=== PATIENT | male | born 1975 | race Caucasian/White ===

== ENCOUNTER 2024-12-28 02:25 | Observation (INO) | payer BC, SELFPAY ==
[2024-12-28] VITALS (54 sets, daily range): BP systolic 117–159; BP diastolic 57–95; PULSE 58–76; RESP 11–23; TEMP 35.7–36.8; O2SAT 92–100; BMI 32.8
--- NOTE | 2024-12-28 02:30 | DI.CT_ITS ---
Exam(s) CT ABDOMEN PELVIS W EXAM: CT ABDOMEN PELVIS W CLINICAL HISTORY: RUQ abd pain/tenderness. TECHNIQUE: Imaging Protocol: Axial computed tomography images with coronal and sagittal reformatted images were created and reviewed CONTRAST MATERIAL: Intravenous: Omnipaque 350 Contrast volume:100 ml Oral: no COMPARISON: No exams were available for comparison FINDINGS: ABDOMEN and PELVIS: Lung Bases: No acute findings. Liver: Normal density. No suspicious mass. Gallbladder and biliary tract: There are few stones within the dependent portion of the gallbladder. There is additional stone noted in the cystic duct measuring 4 millimeters. There is mild stranding around the gallbladder, findings are consistent with early acute cholecystitis. No wall thickening or pericholecystic fluid. No biliary dilation. Pancreas: Normal density. No abnormal calcifications or inflammatory process. No evidence of mass. Spleen: Normal. Kidneys: Normal size, contour and axis. No radiodense stones. No obstructive uropathy. No suspicious masses seen. Adrenal glands: No masses seen. Vasculature: Abdominal aorta non-dilated. Soft tissues: Unremarkable. Bladder: No gross wall thickening. No calculi.No focal mass. Bowel: No obstruction. No bowel wall thickening. Appendix normal. Normal quantity of stool. Peritoneal cavity: No ascites. No focal collection. Mild stranding in the fat surrounding the gallbladder. No free air. Bones: Unremarkable for age. Reproductive organs: mildly enlarged prostate. Lymph nodes: No pathologically enlarged lymph nodes. IMPRESSION:: Several stones within the gallbladder as well as stone in cystic duct. Mild gallbladder inflammation. The preliminary [facility] report was reviewed. RADIATION DOSE DELIVERED: 812.88mGy.cm Total DLP DATA REPOSITORY: All CT scans at this facility are submitted to the National Radiology Data Registry (NRDR) Dose Index Registry (DIR) with the [employer] [place] [employer] [employer] (ACR). RADIATION OPTIMIZATION: All CT scans at this facility use at least one of these dose optimization techniques: automated exposure control; mA and/or kV adjustment per patient size (includes targeted exams where dose is matched to clinical indication); or iterative reconstruction.
--- NOTE | 2024-12-28 02:30 | ED.GENADUL_ITS ---
Discharge Plan Disposition Patient Disposition: Admit to [facility] Condition: Stable Discharge Details Clinical Impression: Acute cholecystitis ED Provider: Mat Bosch [facility] and New Rx's Prescriptions: No Action simvastatin 40 mg tablet 40 mg PO QHS multivitamin [Multiple Vitamins] Tablet 1 tab PO DAILY HPI General Mode of arrival: ambulatory . Date/Time Provider Initiated Documentation: 12/28/24 02:30 . Limitations to Documentation: no limitations . Information obtained by: patient and RN notes reviewed . HPI Narrative: Patient presents to ED after being woken up around 1 AM with severe right upper quadrant abdominal pain radiating in towards the back. He has had similar but less severe pain a few weeks ago and is due for a right upper quadrant ultrasound as an outpatient. Pain tonight woke him up and was described as sharp 8 out of 10 pain. It has lessened but is still present. He has some mild nausea but denies any vomiting or diarrhea. Pain is not worse with breathing. He has had no urinary symptoms. He does not feel short of breath and denies any chest pain. He has had no previous surgeries. He has high cholesterol but no o ther significant medical problems. Related Data Home Medications ?Medication ?Instructions ?Recorded ?Confirmed multivitamin (Multiple Vitamins 1 tab PO DAILY 5 12/28/24 tablet) simvastatin 40 mg tablet 40 mg PO QHS 12/28/24 Allergies Allergy/AdvReac Type Severity Reaction Status Date / Time No Known Allergies Allergy Unverified 12/28/24 02:39 Exam Narrative Exam Narrative: Const: WDWN male in NAD. VS per triage. HEENT: NC/AT. Normal facial exam. Neck: Supple. Trachea midline. Lungs: Normal respiratory effort. Lungs are clear. Cor: RRR without murmur. Good radial pulses. GI: Soft/ND. Mildly tender without guarding in the RUQ. Back: No CVAT. Neuro: A+O x 3. Normal speech, mentation, gait. Cranial nerves II - XII grossly intact. No gross motor or sensory deficit. Ext: No C/C/E. Medical Decision Making Patient presenting to ED with right upper quadrant abdominal pain radiating to the back. He is mildly tender in the right upper quadrant but no guarding or rebound no Javier sign. Pain does seem most consistent with gallbladder disease. There is no pleuritic component and he is not short of breath. Denies chest pain. Potentially could be pancreas or ulcer related in nature. Less likely liver disease. Consider possibility of proximal ureteral stone. Will place IV and obtain labs. Doubt this is cardiac but will get an EKG. Fluids and Toradol ordered. CT scan of the abdomen/pelvis obtained. EKG is sinus rhythm with no ST changes, normal EKG. Laboratory studies are unremarkable. His white count is normal. Liver function normal. Lipase normal. CT scan being preliminarily read by radiology as acute cholecystitis with a 3 mm stone in the neck with associated inflammatory changes. Patient will be made NPO. Will continue fluids at 125 an hour. Patient given dose of antibiotics and will discuss with surgery later this morning. Patient is aware of findings. Morphine ordered as needed as needed for recurrent pain. Lab Data Lab results reviewed: Yes I reviewed the patient's lab results. Lab results narrative: see [facility] ECG Data Attestation: I personally reviewed and interpreted this ECG (s) as follows: Prior ECG tracings: not available for review Interpretation: see EKG/MDM [facility] All Active Problems (Updated 12/28/24 @ 03:35 by Mat Bosch MD) Acute cholecystitis (Acute) Medical History Hyperlipidemia Social History Smoking/Tobacco Use Status: Never Smoking risk assessment performed?: Yes Alcohol Intake: current Alcohol Intake frequency: 3 or more drinks per day Substance use type: does not use Housing: house
--- NOTE | 2024-12-28 02:30 | RT.EKG_ITS ---
APPROVED REPORT Exam: Resting ECG Reason for Exam: chest pain Patient Location: E HR:69 bpm ECG Measurements Heart Rate 69 AXIS CO 190 P 29 QRSd 93 QRS 18 QT 376 T 7 QTc 402 Conclusion Sinus rhythm...normal P axis, V-rate 60- 99 Normal Electrocardiogram
[2024-12-28 02:48] LABS: Abs Immature Grans 0.02 10^3/uL (0.0-0.06); Absolute Basophil Count 0.05 10^3/uL (0.0-0.2); Absolute Eosinophil Count 0.17 10^3/uL (0.0-0.7); Absolute Lymphocyte Count 2.33 10^3/uL (1.2-3.4); Absolute Monocyte Count 0.41 10^3/uL (0.1-0.8); Absolute Neutrophil Count 2.87 10^3/uL (1.2-6.7); Basophils % 0.9 %; Eosinophils % 2.9 %; HCT 44.4 % (40.0-50.0); HGB 15.3 g/dL (13.5-17.5); Immature Grans % 0.3 %; Lymphocytes % 39.8 %; MCH 28.8 pg (27.0-33.0); MCHC 34.5 % (32.0-36.0); MCV 84 fL (80-95); MPV 10.1 fL (8.0-11.0); Neutrophils % 49.1 %; Platelet Count 216 10^3/uL (130-400); RBC 5.31 10^6/uL (4.36-5.78); RDW 12.4 % (11.8-14.1); RDW-SD 37.4 fL; WBC 5.85 10^3/uL (4.4-10.8)
[2024-12-28] MEDS: Omnipaque 350 MG/ML 100 ML BTL IJ (02:55)
[2024-12-28] MEDS: Normal Saline Flush 10 ML SYR IVP ×3 (02:56→20:50)
[2024-12-28] MEDS: Normal Saline - Diluent 50 ML VIAL IJ (02:56)
[2024-12-28 03:05] LABS: ALT 40 U/L (16-63); AST 26 U/L (15-37); Albumin 4.6 g/dL (3.4-5.0); Alkaline Phosphatase 59 U/L (46-116); Anion Gap 7.8 mmol/L (3-11); BUN 20 mg/dL (7-18); Bilirubin, Total 0.5 mg/dL (0.2-1.0); CO2 31.2 mmol/L (21.0-32.0); CREATININE 1.3 mg/dL (0.70-1.30); Calcium 9.3 mg/dL (8.5-10.1); Chloride 103 mmol/L (98-107); Estimated GFR 67.34 (mL/min/1.73m2); Glucose 107 mg/dL (74-106); Lipase 71 U/L (<78); Potassium 4.2 mmol/L (3.5-5.1); Sodium 142 mmol/L (136-145); Total Protein 7.6 g/dL (6.4-8.2)
[2024-12-28] MEDS: Normal Saline 500 ML IV (03:12)
[2024-12-28] MEDS: Ketorolac 15 MG/ML VIAL IVP (03:12)
--- NOTE | 2024-12-28 03:23 | DI.[facility]_ITS ---
PROCEDURE INFORMATION: Exam: CT Abdomen And Pelvis With Contrast Exam date and time: 12/28/2024 2:53 AM Age: 49 years old Clinical indication: Abdominal pain; Localized; Right upper quadrant (ruq); Ruq abd pain/tenderness TECHNIQUE: Imaging protocol: Computed tomography of the abdomen and pelvis with contrast. Radiation optimization: All CT scans at this facility use at least one of these dose optimization techniques: automated exposure control; mA and/or kV adjustment per patient size (includes targeted exams where dose is matched to clinical indication); or iterative reconstruction. Contrast material: OMNIPAQUE 350; Contrast volume: 100 ml; Contrast route: INTRAVENOUS (IV); COMPARISON: No relevant prior studies available. FINDINGS: Lungs: Lung bases clear. Liver: Normal appearing liver. Gallbladder and biliary ducts: Prominent gallbladder distention with mild surrounding hazy fat stranding. Calcified gallstones in the gallbladder neck. 3 mm calcified stone in the cystic duct on image 27 of series 8. No biliary dilatation. Pancreas: Normal appearing pancreas. Spleen: Normal appearing spleen. Adrenal glands: Normal appearing adrenal glands. Kidneys and ureters: Small indeterminate hypoattenuating left renal lesion, not well characterized but statistically most likely a small renal cyst. Otherwise normal-appearing kidneys. No obstructing ureteral stones, hydronephrosis, or evidence of recent stone passage. Stomach and bowel: Stomach moderately distended with ingested material. No small bowel dilatation to suggest obstruction. Normal-appearing colon. No evidence of diverticulitis or colitis. Appendix: Normal appendix. Intraperitoneal space: No gross ascites or free air. Vasculature: Normal caliber abdominal aorta. Lymph nodes: No pathologically enlarged mesenteric, retroperitoneal, or pelvic sidewall lymph nodes. Urinary bladder: Urinary bladder partially collapsed but grossly unremarkable, as seen. Reproductive: Mildly enlarged prostate gland with a maximum transverse dimension of 4.6 cm x 5.6 cm. Normal-appearing seminal vesicles. Bones/joints: Pectus excavatum deformity partially visualized. No acute fracture seen among the bones of the abdomen or pelvis. Soft tissues: No significant ventral or inguinal hernia. 2.2 cm x 3.0 cm subcutaneous but cutaneously based cystic lesion in the left flank on image 31 of series 8, not definitively characterized but most likely a trichilemmal cyst or sebaceous cyst. IMPRESSION: Acute cholecystitis caused by a 3 mm calcified stone in the cystic duct. Surgery consultation recommended. Additional calcified gallstones also present. Dictated and Authenticated by: Chi Palencia MD. Orderin Hiro Rivero MD
[2024-12-28] MEDS: PIPERACILLIN/TAZO 3.375 GM in Normal Saline 50 ML IVPB (05:18)
[2024-12-28 06:07] LABS: Bilirubin Negative (Negative); Blood Negative (Negative); Clarity Clear (Clear); Glucose Negative (Negative); Ketones Negative (Negative); Leukocyte Esterase Negative (Negative); Nitrite Negative (Negative); Specific Gravity <= 1.005 (1.005-1.025); Urobilinogen 0.2 mg/dL (Up to 0.2); pH 5.5 (5-8)
--- NOTE | 2024-12-28 07:22 | W.PM.HP.N ---
Date of service: 12/28/24 Time of Service: 07:22 Assessment and Plan Assessment and plan (1) Acute cholecystitis: Status: Acute Assessment and plan: The history certainly seems consistent with symptoms related to cholelithiasis, and the inflammation seen on the CT scan I think would support the diagnosis of acute cholecystitis. He also has tenderness in the area which is also consistent with that diagnosis. I think cholecystectomy is a very reasonable option here. We talked about the risks and the benefits of the procedure and I think he has a very good understanding of this. Will try to arrange this as soon as possible. History of Present Illness History of Present Illness Chief Complaint: Abdominal pain Narrative: Luis Angel is 49 years old. Came to the emergency department after waking from sleep with sharp stabbing right upper quadrant pain. He had a little bit of nausea associated with this. This happened to him once in the past, and he was in the process of being evaluated for cholelithiasis. Unfortunately, his outpatient ultrasound was not scheduled until January. Came to the emergency department because of concern of the symptoms. Labs and vitals were reassuring, and he underwent a CT scan that demonstrated a dilated gallbladder with some inflammation in the surrounding soft tissues. There is also evidence of cholelithiasis. He has never had any abdominal surgical history before. He is got no medical allergies. Review of Systems Constitutional Constitutional: Denies fever(s) and Reports poor appetite Eyes Eyes: Reports system reviewed and no additional complaints, except as documented ENT Ears, Nose, Mouth, and Throat: Reports system reviewed and no additional complaints, except as documented Cardiovascular Cardiovascular: Denies chest pain and Denies dyspnea Respiratory Respiratory: Denies chest congestion, Denies cough and Denies dyspnea Gastrointestinal Gastrointestinal: Reports abdominal pain, Reports nausea and Denies vomiting Genitourinary Genitourinary: Reports system reviewed and no additional complaints, except as documented Musculoskeletal Musculoskeletal: Reports system reviewed and no additional complaints, except as documented Hematologic/Lymphatic Hematologic/Lymphatic: Denies easy bleeding and Denies easy bruising PFSH All Active Problems (Updated 12/28/24 @ 03:35 by Mat Bosch MD) Acute cholecystitis (Acute) Medical History Hyperlipidemia Social History Smoking/Tobacco Use Status: Never Smoking risk assessment performed?: Yes Alcohol Intake: current Alcohol Intake frequency: 3 or more drinks per day Substance use type: does not use Housing: house Meds Allergies and Home Medications Allergies Allergy/AdvReac Type Severity Reaction Status Date / Time No Known Allergies Allergy Unverified 12/28/24 02:39 Home Medications ?Medication ?Instructions ?Recorded ?Confirmed ?Type multivitamin (Multiple Vitamins 1 tab PO DAILY 12/28/24 12/28/24 History tablet) simvastatin 40 mg tablet 40 mg PO QHS 12/28/24 12/28/24 History Exam Const General: cooperative and comfortable Orientation: alert, awake and oriented x3 HENMT Head: normal to inspection Eyes General: appearance normal, both eyes and all related structures Neck Neck: normal visual inspection, full ROM and no lymphadenopathy Resp Effort & Inspection: normal respiratory effort and no cough Auscultation: clear to auscultation bilaterally GI Inspection: normal to inspection and non-distended Palpation: soft, no guarding and tender (Right upper quadrant) Percussion: normal to percussion Auscultation: normal bowel sounds Results Labs 12/28/24 02:41 12/28/24 02:41 Labs: Laboratory Results - last 24 hr 12/28/24 12/28/24 02:41 06:00 WBC 5.85 RBC 5.31 Hgb 15.3 Hct 44.4 MCV 84 MCH 28.8 MCHC 34.5 RDW 12.4 Plt Count 216 MPV 10.1 Immature Gran % 0.3 Neutrophils % 49.1 Lymphocytes % 39.8 Monocytes % 7.0 Eosinophils % 2.9 Basophils % 0.9 Nucleated RBC % 0.0 Absolute Neutrophils 2.87 Absolute Lymphocytes 2.33 Absolute Monocytes 0.41 Absolute Eosinophils 0.17 Absolute Basophils 0.05 Sodium 142 Potassium 4.2 Chloride 103 Carbon Dioxide 31.2 Anion Gap 7.8 BUN 20 H Creatinine 1.3 Est GFR (CKD-EPI 2020) 67.34 Glucose 107 H Calcium 9.3 Total Bilirubin 0.5 AST 26 ALT 40 Alkaline Phosphatase 59 Total Protein 7.6 Albumin 4.6 Lipase 71 Urine Color Yellow Urine Clarity Clear Urine pH 5.5 Ur Specific [place] <= 1.005 Urine Protein Negative Urine Ketones Negative Urine Blood Negative Urine Nitrite Negative Urine Bilirubin Negative Urine Urobilinogen 0.2 Ur Leukocyte Esterase Negative Urine Glucose Negative Last Vital Signs Temp 97.9 F 12/28/24 02:29 Pulse 67 12/28/24 05:40 Resp 11 L 12/28/24 02:50 BP 137/81 12/28/24 05:30 Pulse Ox 98 12/28/24 05:40 Time Spent Time spent with Patient: 40-54 minutes Time was spent: preparing to see the patient(eg.review tests), obtaining and/or reviewing separately otained hiistory, referring, communicating with other health critical care unit nurse, indepentently interpreting results and counseling the patient
--- NOTE | 2024-12-28 07:25 | ED.PROG_ITS ---
Date of service: 12/28/24 Time of Service: 07:25 Medical Decision Making This patient was in the department on my arrival. Patient has acute cholecystitis. General surgery has been contacted. Patient has received antibiotics and is n.p.o. with maintenance fluids. General surgery will place orders. Dr. Bosch has been in touch with Dr. Zamora. 8:09 AM Patient was taken to the floor from the emergency department. Dr. Zamora placed admission order. Discharge Plan Disposition Patient Disposition: Admit to [facility] Condition: Stable Discharge Details Clinical Impression: Acute cholecystitis Primary Care Provider: Gurwinder Ray ED Provider: Gurwinder Teresa Home Meds and New Rx's Prescriptions: No Action simvastatin 40 mg tablet 40 mg PO QHS multivitamin [Multiple Vitamins] Tablet 1 tab PO DAILY
--- NOTE | 2024-12-28 08:33 | W.PC.ACHO ---
Registration Status: REG ER Primary Language: Preferred Language: ED Information & Data Chief Complaint Abd Prob 12/28/24 02:34 Chief Complaint Abd Prob 12/28/24 02:29 Triage Note pt arrives with abdominal 12/28/24 02:29 pain. States he was seen at [facility] about two weeks ago and they felt it was gall bladder related and recommended a US. Pt had follow up w pcp and US is scheduled for a month. Pt states pain has continued this past week and came on worse this am Medical / Surgical History (Last Reviewed 12/28/24 @ 03:07 by Mat Bosch MD) Hyperlipidemia Most Recent Vital Signs Temperature 97.7 F 12/28/24 08:19 Temperature Source Oral 12/28/24 02:29 Pulse 62 12/28/24 08:19 Pulse 70 12/28/24 02:50 Respiratory Rate 16 12/28/24 08:19 Blood Pressure 124/69 12/28/24 08:19 Blood Pressure Mean 96 12/28/24 05:30 Pulse Oximetry 99 12/28/24 08:19 Oxygen Delivery Method Room Air 12/28/24 02:29 Oxygen Flow Rate 0 12/28/24 02:29 Pain Level 2 12/28/24 05:05 Allergies No Known Allergies Allergy (Unverified 12/28/24 02:39) Precautions Isolation Standard precaution 12/28/24 02:34 Active Medications Generic Name Dose Route Start Last Admin Trade Name Freq PRN Reason Stop Dose Admin Iohexol 100 ml 12/28/24 03:00 12/28/24 02:55 Omnipaque 350 Mg/Ml 100 Ml Btl IJ 01/27/25 23:59 100 ml DIRECTED KIRAN Administration Sodium Chloride 0 ml 12/28/24 02:37 12/28/24 02:56 Normal Saline Flush 10 Ml Syr IVP 10 ml PRN PRN Administration Sodium Chloride 50 ml 12/28/24 03:00 12/28/24 02:56 Normal Saline - Diluent 50 Ml Vial IJ 50 ml .FOR DI USE KIRAN Administration IV IV Catheter Type [Right Saline Lock Forearm] IV Catheter Gauge [Right 18 Forearm] Diagnostics 12/28/24 12/28/24 Range/Units 06:00 02:41 WBC 5.85 (4.4-10.8) 10^3/uL RBC 5.31 (4.36-5.78) 10^6/uL Hgb 15.3 (13.5-17.5) g/dL Hct 44.4 (40.0-50.0) % MCV 84 (80-95) fL MCH 28.8 (27.0-33.0) pg MCHC 34.5 (32.0-36.0) % RDW 12.4 (11.8-14.1) % Plt Count 216 (130-400) 10^3/uL MPV 10.1 (8.0-11.0) fL Immature Gran % 0.3 % Neutrophils % 49.1 % Lymphocytes % 39.8 % Monocytes % 7.0 % Eosinophils % 2.9 % Basophils % 0.9 % Nucleated RBC % 0.0 (0.0-0.3) % Absolute Neutrophils 2.87 (1.2-6.7) 10^3/uL Absolute Lymphocytes 2.33 (1.2-3.4) 10^3/uL Absolute Monocytes 0.41 (0.1-0.8) 10^3/uL Absolute Eosinophils 0.17 (0.0-0.7) 10^3/uL Absolute Basophils 0.05 (0.0-0.2) 10^3/uL Sodium 142 (136-145) mmol/L Potassium 4.2 (3.5-5.1) mmol/L Chloride 103 (98-107) mmol/L Carbon Dioxide 31.2 (21.0-32.0) mmol/L Anion Gap 7.8 (3-11) mmol/L BUN 20 H (7-18) mg/dL Creatinine 1.3 (0.70-1.30) mg/dL Est GFR (CKD-EPI 2020) 67.34 (mL/min/1.73m2) Glucose 107 H (74-106) mg/dL Calcium 9.3 (8.5-10.1) mg/dL Total Bilirubin 0.5 (0.2-1.0) mg/dL AST 26 (15-37) U/L ALT 40 (16-63) U/L Alkaline Phosphatase 59 (46-116) U/L Total Protein 7.6 (6.4-8.2) g/dL Albumin 4.6 (3.4-5.0) g/dL Lipase 71 (<78) U/L Urine Color Yellow (Yellow) Urine Clarity Clear (Clear) Urine pH 5.5 (5-8) Ur Specific [place] <= 1.005 (1.005-1.025) Urine Protein Negative (Neg-Trace) mg/dL Urine Ketones Negative (Negative) mg/dL Urine Blood Negative (Negative) Urine Nitrite Negative (Negative) Urine Bilirubin Negative (Negative) Urine Urobilinogen 0.2 (Up to 0.2) mg/dL Ur Leukocyte Esterase Negative (Negative) Urine Glucose Negative (Negative) mg/dL Intake and Output - 24 Hour Total 12/28/24 02:25 thru 12/28/24 05:52 Intake Total 550 Balance 550 Weight 250 lb Intake: IV 550 Falls Risk Assessment History of Falls No History 12/28/24 02:34 Contributing Factors No Factors 12/28/24 02:34 Ambulatory Aids Independent 12/28/24 02:34 Tubes/Lines None 12/28/24 02:34 Gait Evaluation No gait disturbance 12/28/24 02:34 Cognition No cognitive impairment 12/28/24 02:34 Fall Total Score 0 12/28/24 02:34 Level of Risk Standard/Low Risk 12/28/24 02:34 v v v v v v v v v Sending and/or Receiving Nurses: Please use comment section below to note any information pertinent to the patient hand-off not included above. Information / Comments: Plan for surgery this afternoon NPO 12/27/24 Report received from: Lilly Mays RN
[2024-12-28] MEDS: Lactated Ringers 1,000 ML 75 ML IV (09:02)
[2024-12-28] MEDS: Enoxaparin 40 MG/0.4 ML SYR SC (13:04)
--- NOTE | 2024-12-28 13:39 | ANES.PREOP_ITS ---
General Info Date of Service Date Performed: 12/28/24 Height: 6 ft 1 in Weight: 112.8 kg Body Mass Index (BMI): 32.8 Surgical Procedure: Operation Date: 12/28/24 14:25 Proposed Procedure Side Surgeon p Cholecystectomy Laparoscopic Manan Zamora MD Meds Allergies and Home Medications Allergies Allergy/AdvReac Type Severity Reaction Status Date / Time No Known Allergies Allergy Unverified 12/28/24 02:39 Home Medication ?Medication ?Instructions ?Recorded multivitamin (Multiple Vitamins 1 tab PO DAILY 5 tablet) simvastatin 40 mg tablet 40 mg PO QHS 12/28/24 Current Visit Medications: Current Medications Generic Name Dose Route Start Last Admin Trade Name Freq PRN Reason Stop Dose Admin Enoxaparin Sodium 40 mg 12/28/24 12:00 12/28/24 13:04 Enoxaparin 40 Mg/0.4 Ml Syr SC 40 mg Q24H KRIAN Administration Hydromorphone HCl 1 mg 12/28/24 08:40 Hydromorphone 2 Mg/Ml Syr IVP Q4H PRN PRN Ringer's Solution 1,000 mls @ 75 mls/hr 12/28/24 08:40 12/28/24 09:02 IV 75 mls/hr INFUSION KIRAN Administration IV Miscellaneous Supplies 1 each 12/28/24 08:40 Iv Access IV DIRECTED KIRAN Morphine Sulfate 4 mg 12/28/24 07:53 Morphine 4 Mg/Ml Syr IVP Q2H PRN PRN Abdominal Pain Ondansetron HCl 4 mg 12/28/24 08:40 Ondansetron 4 Mg/2 Ml Vial IVP Q4H PRN PRN Sodium Chloride 0 ml 12/28/24 08:40 Normal Saline Flush 10 Ml Syr IVP PRN PRN Sodium Chloride 0 ml 12/28/24 08:40 12/28/24 09:19 Normal Saline Flush 10 Ml Syr IVP 10 ml BID KIRAN Administration Sodium Chloride 0 ml 12/28/24 08:40 Normal Saline 10 Ml Vial IJ DIRECTED PRN PFSH Active Problems Active Problems: Problem Status Onset Code Acute cholecystitis Acute K81.0 Medical History Medical History Hyperlipidemia Tobacco Smoking/Tobacco Use Status: Never Alcohol Alcohol Intake: current Alcohol intake frequency: 3 or more drinks per day Substance Use Substance use type: does not use Vital Signs and Lab Results Vital Signs Most Recent Vital Signs in EMR: Most Recent Vital Signs Temp Pulse Resp BP Pulse Ox 36.8 C 61 14 131/79 100 12/28/24 13:03 12/28/24 13:03 12/28/24 13:03 12/28/24 13:03 12/28/24 13:03 Lab Results 12/28/24 02:41 12/28/24 02:41 Complete Blood Count: 2 WBC, (4.4-10.8) 5.85 10^3/uL Today, 02:41 RBC, (4.36-5.78) 5.31 10^6/uL Today, 02:41 Hgb, (13.5-17.5) 15.3 g/dL Today, 02:41 Hct, (40.0-50.0) 44.4 % Today, 02:41 Plt Count, (130-400) 216 10^3/uL Today, 02:41 Complete Metabolic Panel: 2 Sodium, (136-145) 142 mmol/L Today, 02:41 Potassium, (3.5-5.1) 4.2 mmol/L Today, 02:41 Chloride, (98-107) 103 mmol/L Today, 02:41 Carbon Dioxide, (21.0-32.0) 31.2 mmol/L Today, 02:41 BUN, (7-18) 20 mg/dL H Today, 02:41 Creatinine, (0.70-1.30) 1.3 mg/dL Today, 02:41 Est GFR (CKD-EPI 2020), (mL/min/1.73m2) 67.34 Today, 02:41 Calcium, (8.5-10.1) 9.3 mg/dL Today, 02:41 Albumin, (3.4-5.0) 4.6 g/dL Today, 02:41 Glucose, (74-106) 107 mg/dL H Today, 02:41 Liver Function Panel: 2 ALT, (16-63) 40 U/L Today, 02:41 AST, (15-37) 26 U/L Today, 02:41 Pancreas Panel: 2 Lipase, (<78) 71 U/L Today, 02:41 Imaging and Studies Imaging and Studies Study information below may be from another EMR and interpreted by another provider. Please see original notes in EMR for more complete details. EKG Summary: EKG PATIENT NAME: Luis Angel Reid UNIT #: [id number] ORDERING PROVIDER: Litzy Joseph M.D. PRIMARY CARE PROVIDER: DATE/TIME OF SERVICE: 12/28/24 0244 : 1975 PERFORMING LOCATION: ER APPROVED REPORT Exam: Resting ECG Reason for Exam: chest pain Patient Location: E HR:69 bpm ECG Measurements Heart Rate 69 AXIS ID 190 P 29 QRSd 93 QRS 18 QT 376 T7 QTc 402 Conclusion Sinus rhythm...normal P axis, V-rate 60- 99 Normal Electrocardiogram - <Electronically signed by LITZY JOSEPH MD in OV> E-Sign Date: 12/28/24 E-Sign Time: 311 Anesthesia Assessment and Plan Anesthesia History Personal History: No History of Anesthesia Complications Family History: No Family History of Anesthesia Complications Exercise Tolerance Exercise Tolerance: Metabolic Equivalents>4 Pertinent Negatives Pertinent Negatives: No Symptoms of GERD, No Major Cardiovascular Symptoms or Complaints, No Major Pulmonary Symptoms or Complaints and No History of CVA/TIA Cardiac & Pulmonary Exam Cardiac Exam: Normal S1/S2 Heart Sounds Pulmonary Exam: Clear Bilateral Breath Sounds Implantable Cardiac Device Does patient have a Pacemaker or an ICD?: No Airway Exam Known Difficult Airway: No Mallampati Class: 2 Mouth Opening: Normal (> 3cm) Thyromental Distance: Greater than 3 cm Facial Hair: Full White Neck Range of Motion: Full ROM Neck Circumference: Normal Teeth Condition: Normal Dentition ASA Classification ASA Score: ASA 2 Emergency Case?: No NPO Status NPO Status: NPO Clears >2 hours, Solids >8 hours Anesthesia Plan Resuscitation Status: Full Code Anesthesia Technique: General Anesthesia Airway Planned: Endotracheal Tube Monitors Used: Standard Monitors and SedLine
[2024-12-28] MEDS: ceFAZolin 2,000 MG in Normal Saline 100 ML 200 MG IVPB (14:58)
[2024-12-28] MEDS: Indocyanine green 25 MG VIAL 5 MG IVP (15:00)
[2024-12-28] MEDS: Bupivacaine 0.25% Pres-Free 30 ML VIAL (15:41)
--- NOTE | 2024-12-28 15:44 | GB_PTH ---
PATIENT: Luis Angel Reid LOC: U#:[id number] AGE/SX: 49/M ROOM: [facility] RE12/28/[address]: Manan Zamora MD : [id number] BED: A DIS: 12/29/2024 SPEC #: [id number] RECD: 12/28/24 18:33 STATUS: JEFF REQ #: [id number] CELINE: 12/28/24 15:[address]: Manan Zamora DEPT: Surgical Specimen RECD BY: Jenifer Mendoza Tissues: 1 - GALLBLADDER Procedures: GROSS AND MICRO LEVEL 3 Comments: [id number]
[2024-12-28] MEDS: fentaNYL 100 MCG/2 ML VIAL IVP (17:06)
--- NOTE | 2024-12-28 17:09 | W.ANESPOSTOP ---
Postoperative Evaluation Date, Time and Location Date Performed: 12/28/24 Time Performed: 17:09 Patient Location: PACU Vital Signs Most Recent Imported Vital Signs: Most Recent Vital Signs Temp Pulse Resp BP Pulse Ox 36.2 C L 68 15 159/90 H 97 12/28/24 17:01 12/28/24 17:01 12/28/24 17:01 12/28/24 17:01 12/28/24 17:01 Pain Score Most Recent Pain Score: Most Recent Pain Score Pain Level 0 12/28/24 13:03 Assessment Mental Status: Arousable with meaningful communication Airway and Respiratory Function: Patent airway with normal (patient baseline) respiratory exam Cardiovascular Function: Hemodynamically Stable Hydration Status: Adequately Hydrated Nausea & Vomiting: No Nausea or Vomiting Pain: Pain is tolerable per patient (5/10) Peripheral Nerve Block: Patient did not receive a nerve block Teaching Patient Teaching: Discussed Safe Use of Pain Medication Given Recent Anesthesia, Discussed Safe Use of Pain Medication Given Likely or Known MARYAM and Discussed the importance of using CPAP/BiPAP during any sleep period
--- NOTE | 2024-12-28 17:43 | ROE_ITS ---
Operative Note Operative Note PRE-OP DIAGNOSIS: Acute cholecystitis POST-OP DIAGNOSIS: same PROCEDURE: Laparoscopic cholecystectomy SURGEON: Manan Zamora INSTRUCTIONAL TECHNOLOGY TEACHER: Suzette Greenwood ANESTHESIA TYPE: Local By Surgeon and General LMA/ETT Refer to Anesthesia Record ESTIMATED BLOOD LOSS: 25 PATHOLOGY: other (Gallbladder) COMPLICATIONS: None Patient was transported to: PACU Patient's condition: stable Indications: Luis Angel is a 49-year-old male with acute onset of right upper quadrant pain. He underwent a CT scan that confirmed the diagnosis of acute cholecystitis Findings: Acute cholecystitis Procedure Description: After satisfactory induction of general anesthesia, I prepped and draped the abdomen in usual fashion. Next, I began with a periumbilical incision. I dissected down to the fascia and elevated it with Luis Enrique clamps. I incised it sharply. Next, I passed a 12 mm operating port in the umbilical site. I then insufflated the peritoneal cavity. Next I inserted a 5 mm 30 degree scope and examined the underlying viscera. There was no evidence of injury created upon entry. I then placed the patient in some reverse Trendelenburg and left side down positioning. Then, with the assistance of the laparoscope, I used local anesthetic to anesthetize the midepigastric and 2 right upper quadrant port sites. Under the vision of the laparoscope, I passed 3 more 5 mm ports. There were some adhesions of the greater omentum over the dome of the gallbladder. Electrocautery was used to take these down. I then grasped the gallbladder fundus and elevated cephalad. With the assistance of indocyanine green, I began by dissecting the gallbladder infundibulum. I worked in a lateral to medial fashion. Once I skeletonized the cystic duct and cystic artery, with a satisfactory critical view of safety, I doubly clipped and divided them. I then used electrocautery to dissect the gallbladder off the gallbladder fossa. I passed the gallbladder into an Endo Catch bag and removed it by way of the umbilical site. I examined the surgical field. It was hemostatic. This was irrigated clean. The umbilical port site was closed with a Castillo Jha wound closure device. I then removed the 5 mm ports under the vision of the laparoscope. The surgical sites were irrigated, and the skin was closed with subcuticular stitches. Bandages were applied, patient was awakened from anesthesia, and transferred to the recovery unit. Date of Procedure: 12/28/24
--- NOTE | 2024-12-28 17:46 | W.PM.DS.N ---
Date of service: 12/28/24 Time of Service: 17:46 DS: Diagnosis Discharge Diagnosis (1) Acute cholecystitis: Status: Acute Discharge Plan Disposition Patient Disposition: Home Condition: Good Discharge Details Reason For Visit: Cholecystitits Admit Date/Time: 12/28/24 07:19 Admit Provider: Manan Zamora Attending Provider: Manan Zamora [facility] Course: Luis Angel is a 49-year-old male came to the emergency department with acute onset of right upper quadrant pain. CT scan confirmed the diagnosis of acute cholecystitis. He was brought to the operating room later that day, and underwent laparoscopic cholecystectomy. He was discharged home with instructions and outpatient follow-up Home Meds and New Rx's Prescriptions: New tramadol 50 mg tablet 50 mg PO Q8H PRNQty: 9 0RF Rx Instructions: Take 1 tablet by mouth up to every 8 hours if needed for severe pain Continued simvastatin 40 mg tablet 40 mg PO QHS multivitamin [Multiple Vitamins] Tablet 1 tab PO DAILY Discharge Instructions Instructions: Cholecystectomy, Laparoscopic Surgery Additional Instructions: Luis Angel, it was very nice meeting you today, and I hope you feel well, and make an uneventful recovery as you transition home. Like we talked about, you had inflammation of your gallbladder, likely secondary to gallstones. We were able to remove your gallbladder in the operating room without much difficulty. As you transition home, expect to have some pain in your abdomen, especially at the incision sites, and maybe a little in the right upper quadrant. The incisions are dressed with bandages that can stay in place till tomorrow. If they become saturated and need to be changed, regular Band-Aids are fine to use. Assuming the bandages do fine over the next 24 hours, you can remove them at home, and wash all of the incisions with warm soapy water. You should wash the incisions at least once daily. It is very common to get bruising at the sites after surgery, so do not be alarmed by that. Using ice packs and medication should help with pain over the next few days. You should be up and walking around a little bit, but keep your lifting less than a gallon of milk or so. I will have my office contact you tomorrow to schedule a follow-up visit to make sure everything is okay. If you need anything at all in the meantime, please do not hesitate to call. 1. Resume all of your regular medications. 2. Use ice packs over the incisions to help with pain and swelling 3. Alternate [id number] Tylenol and ibuprofen every 6 hours for the first 2 days. Then use them as needed. Use the prescription for tramadol if needed for more severe pain 4. Leave bandages in place for 24 hours, then remove. 5. Shower with warm soapy water. Pat dry. Replace the Band-Aids if needed 6. No soaking or tub baths until I see you in the office. 7. No heavy lifting until I see you in the office. 8. Call the office (or go directly to the emergency room after hours) if you notice any of the following: Develop chills (warm to touch), or if you have a thermometer and your temperature is above 101 Difficulty breathing or difficultly swallowing Persistent vomiting Any bleeding ? exceeding one tablespoon 9. Call your physician if the site where your intravenous was started becomes red, swollen, painful, and warm to touch. Activity:: No heavy lifting Equipment/Supplies:: No Equipment Needed Diet:: As Tolerated Discharge Orders Discharge Orders: Discharge Order (Routine); Ordered 12/28/24 Ordered By: Manan Zamora DS: Summary Time Spent with Patient providing and/or coordinating discharge services: Less than 30 minutes Status at Discharge Functional status at discharge: independent ambulation Overall status at discharge: patient is progressing back to baseline Mental Status: mental status grossly normal Speech and Movement: speech and movement normal Mood: congruent mood Affect: normal affect Exam Psych Mental Status: mental status grossly normal Speech and Movement: speech and movement normal Mood: congruent mood Affect: normal affect DS: Data Vitals/I&O Vitals and I&O: Vital Signs Temperature 96.3 F L 12/28/24 17:30 Temperature Source Temporal Artery Scan 12/28/24 17:30 Pulse 63 12/28/24 17:30 Pulse Rhythm Regular 12/28/24 08:41 Pulse 66 12/28/24 17:16 Respiratory Rate 18 12/28/24 17:30 Respiratory Effort Normal, Non-Labored 12/28/24 08:41 Respiratory Depth Normal 12/28/24 08:41 Respiratory Pattern Normal 12/28/24 08:41 Blood Pressure 130/86 12/28/24 17:30 Blood Pressure Mean 100 12/28/24 17:30 Pulse Oximetry 94 12/28/24 17:30 Respiratory End-tidal CO2 42 12/28/24 17:16 Oxygen Delivery Method Room Air 12/28/24 17:30 Oxygen Flow Rate 0 12/28/24 17:30 Pain Level 5 12/28/24 17:15 Intake & Output 12/27/24 12/28/24 12/28/24 23:59 11:59 23:59 Intake Total 550 / 1350 800 / 1350 Output Total Balance 550 / 1325 775 / 1325 Weight 248 lb 10.903 oz 248 lb 10.903 oz Intake: IV 550 / 1350 800 / 1350 Output: Estimated Blood Loss Other: Urine Appearance Clear Emesis Description None Data Completed and Pending Labs on day of discharge: Labs from last 24 hours 12/28/24 12/28/24 06:00 02:41 WBC 5.85 RBC 5.31 Hgb 15.3 Hct 44.4 MCV 84 MCH 28.8 MCHC 34.5 RDW 12.4 Plt Count 216 MPV 10.1 Immature Gran % 0.3 Neutrophils % 49.1 Lymphocytes % 39.8 Monocytes % 7.0 Eosinophils % 2.9 Basophils % 0.9 Nucleated RBC % 0.0 Absolute Neutrophils 2.87 Absolute Lymphocytes 2.33 Absolute Monocytes 0.41 Absolute Eosinophils 0.17 Absolute Basophils 0.05 Sodium 142 Potassium 4.2 Chloride 103 Carbon Dioxide 31.2 Anion Gap 7.8 BUN 20 H Creatinine 1.3 Est GFR (CKD-EPI 2020) 67.34 Glucose 107 H Calcium 9.3 Total Bilirubin 0.5 AST 26 ALT 40 Alkaline Phosphatase 59 Total Protein 7.6 Albumin 4.6 Lipase 71 Urine Color Yellow Urine Clarity Clear Urine pH 5.5 Ur Specific Ferron <= 1.005 Urine Protein Negative Urine Ketones Negative Urine Blood Negative Urine Nitrite Negative Urine Bilirubin Negative Urine Urobilinogen 0.2 Ur Leukocyte Esterase Negative Urine Glucose Negative PFSH All Active Problems (Updated 12/28/24 @ 03:35 by Mat Bosch MD) Acute cholecystitis (Acute) Medical History Hyperlipidemia Social History Smoking/Tobacco Use Status: Never Smoking risk assessment performed?: Yes Alcohol Intake: current Alcohol Intake frequency: 3 or more drinks per day Substance use type: does not use Housing: house Time Spent with Patient Time Spent with Patient: <45 minutes Time was spent: preparing to see the patient(eg.review tests), counseling the patient and care coordination
[2024-12-28] MEDS: traMADol 50 MG TAB PO ×2 (18:26→21:41)
[2024-12-29] MEDS: traMADol 50 MG TAB PO (07:58)
[2024-12-29 08:23] VITALS: BP 115/76; PULSE 69; RESP 18; TEMP 36.7; O2SAT 97
== END 2024-12-29 09:08 | disposition home or self-care (01) ==
LOC: ER 08:04 → MS 08:41
PROVIDERS: Emergency Medicine; Admitting Provider Surgery; Emergency Provider Emergency Medicine; PCP Emergency Medicine Undersea and Hyperbaric Medicine; Visit Provider Surgery
PROC: 0FT44ZZ Resection of Gallbladder, Percutaneous Endoscopic Approach (ICD-10-PCS; CPT 47562; principal; 2024-12-28 14:15)
DX: K81.2 Acute cholecystitis with chronic cholecystitis (principal); E78.5 Hyperlipidemia, unspecified
CPT/HCPCS: 47562; 00123; 36415; 80053; 83690; 93005; 96361; 96365; 96372; 96375; 99285; J1650; 74177; 81003; 85025; 88304; 93010; G0378; J0131; J0665; J0690; J1100; J1885; J2003; J2250; J2405; J2543; J2704; J3010; J3490